=== PATIENT | male | born 1945 | race Two or more races ===

== ENCOUNTER → 2018-05-05 | Outpatient (CLI) | payer OTHER ==
[~2018-05-05] MED LIST: JALYN 0.5-0.41 EACH; RAPAFLO8 MG
== END | disposition home or self-care (01) ==
LOC: NUCLEAR 09:00
DX: C61 Malignant neoplasm of prostate (principal); C79.51 Secondary malignant neoplasm of bone
CPT/HCPCS: 78306; A9503

== ENCOUNTER 2019-02-02 10:45 | Outpatient (CLI) | payer OTHER | END 2019-02-02 10:47 | disposition home or self-care (01) | LOC: MRI 10:45 | DX: M54.17 Radiculopathy, lumbosacral region (principal); M89.30 Hypertrophy of bone, unspecified site | CPT/HCPCS: 72195 ==

== ENCOUNTER 2020-06-26 09:05 | Outpatient (CLI) | payer OTHER | END 2020-06-26 11:08 | disposition home or self-care (01) | LOC: NUCLEAR 09:05 | PROVIDERS: ATTEND Internal Medicine Hematology & Oncology | DX: C61 Malignant neoplasm of prostate (principal); C79.51 Secondary malignant neoplasm of bone | CPT/HCPCS: 78306; A9503 ==